=== PATIENT | female | born 1975 | race Caucasian/White ===

== ENCOUNTER 2017-12-08 16:35 | Emergency (ER) | payer MEDICAID, SELFPAY ==
[2017-12-08 16:40] VITALS: BP 128/67; PULSE 97; RESP 16; TEMP 36.7; O2SAT 100
--- NOTE | 2017-12-08 16:51 | W.ED.GENAD ---
Discharge Plan Disposition Patient Disposition: [facility] Condition: Stable Discharge Details Chief Complaint: PsychEval Clinical Impression: At risk for suicide Primary Care Provider: Ana Daugherty ED Provider: Carolyn De La Cruz Home Meds and New Rx's Prescriptions: No Action No Known Home Meds RF: 0 Discharge Data Discharge Date/Time-TO BE ENTERED AT DEPARTURE: 12/09/17 09:13 Medical Decision Making <EDI Mata - Last Filed: 12/09/17 00:01> Patient is a 42-year-old female, well-known to myself, with chief complaint of suicidal ideation. She reports that she has had a number of financial stressors recently and has had increased thoughts of self-harm. States that she plans to kill herself with a drug overdose. Denies any hallucinations, thoughts of harming others. She denies any recent suicide attempts, has not taken any extra pills. Did recently stop her antidepressant. States that she was placed on antidepressant was have difficulty with hypotension while this medication. Reports that she is been seen by her primary care who has changed the medication but reports she has not been able to pick this up as of yet. Reports that she has tried to kill herself historically by cutting. No recent attempts. States that she is unable to keep herself safe at home. Has been hospitalized for mental health issues historically, was hospitalized last in August of 2017. Currently endorsing GARCIA as well which she assocaites with stress. Requesting Tylenol for discomfort. Was seen by [facility] prior to arrival, reports that they advised she be seen here for evaluation. They recommend hospitalizatin for suicidal ideation. Patient agrees with this plan. She reports they are currently working on finding a bed for her. Plan to obtain screening labs and contact [facility]. Spoke with Barbara with [facility] who is coming to assess the patient, she reports they have contacted local facilities in an effort to find placement for tonight. Barbara came and evaluated the patient. Agrees with the need for admission for suicidal ideation. Patient is a voluntary accident. Patient has remained one-to-one. Received Tylenol for her headache. Drinking water currently. Safety plan was established with the patient. Patient unable to be placed tonight. However, there is beds at [facility] available for tomorrow. Plan to keep patient here overnight do not currently have any in hospital beds awaiting her transfer tomorrow. Patient continues to be agreeable with this plan. Reports that her headache is coming back milligrams ibuprofen as declined any food. Is hydrating orally and appears to be resting. <Carolyn De La Cruz MD - Last Filed: 12/14/17 11:40> Patient was signed out to me by Dr. Hein awaiting transfer [facility] pending bed assignment. Bed now available, Dr. Barth accepting physician. Patient calm and cooperative, no complaints. Patient left ED with metal coater operator for transfer to [facility] by [facility] without incident. HPI <EDI Mata - Last Filed: 12/09/17 00:01> General Mode of arrival: ambulatory. Date/Time Provider Initiated Documentation: 12/08/17 16:45. Limitations to Documentation: no limitations. Information obtained by: patient. History of Present Illness 42 year old F presents to the emergency department with the chief complaint of suicidal ideation, described as severe, Patient started experiencing this day(s) Patient did receive the following treatments prior to arrival, other Related Data Home Medications Medication Instructions Recorded Confirmed Unknown [No Known Home Meds] 09/09/17 12/08/17 Allergies Allergy/AdvReac Type Severity Reaction Status Date / Time No Known Allergies Allergy Unverified 12/08/17 16:43 General Stated Complaint: PsychEval BERHANE: 2 Review of Systems <EDI Mata - Last Filed: 12/09/17 00:01> Constitutional Denies chills, Reports difficulty sleeping, Reports fatigue, Denies fever(s), Reports headache(s) (states she has had nagging GARCIA today, no abrupt onset. STates feels like typical GARCIA, uses Tylenol typically for her GARICA) and Reports poor appetite Eyes Denies change in vision ENT Denies vertigo, Denies dizziness and Reports headache(s) (states she has had nagging GACRIA today, no abrupt onset. STates feels like typical GARCIA, uses Tylenol typically for her GARCIA) Cardiovascular Denies chest pain, Denies chest pain at rest, Denies dyspnea and Denies dyspnea on exertion Respiratory Denies cough, Denies dyspnea and Denies dyspnea on exertion Gastrointestinal Denies abdominal pain, Denies nausea and Denies vomiting Genitourinary Denies dysuria, Denies flank pain and Denies urinary urgency Integumentary/Breasts Denies rash Neurologic Denies confusion, Denies vertigo, Denies dizziness and Reports headache(s) (states she has had nagging GARCIA today, no abrupt onset. STates feels like typical GARCIA, uses Tylenol typically for her GARCIA) Psychiatric Reports as per HPI, Reports anxiety, Reports change in appetite, Denies confusion, Reports depression, Denies auditory hallucinations, Denies hallucinations, Denies homicidal ideation and Reports suicidal ideation Endocrine Reports fatigue Exam <EDI Mata - Last Filed: 12/09/17 00:01> Const General: cooperative, comfortable, no acute distress and frail appearing Nutritional Appearance: thin Orientation: alert and awake HENMT Mouth: moist mucous membranes abnormal (patient appears dehydrated) Eyes General: appearance normal, both eyes and all related structures Resp Effort & Inspection: normal respiratory effort, able to speak in complete sentences and no respiratory distress Auscultation: clear to auscultation bilaterally Cardio Rate: regular rate Rhythm: regular rhythm Heart Sounds: S1 normal and S2 normal Skin General skin exam: no rashes or lesions noted Lesions: no lesions Rashes: no rashes Neuro General: alert, awake and oriented x3 Cognition: normal cognition Speech: speech normal Gait: normal gait (patient ambulates with limp at baseline assocaited with her CP, uses one walking crutch) Psych Appearance: grossly normal and disheveled Mental Status: mental status grossly normal Speech and Movement: speech and movement normal Mood: congruent mood Affect: sad Attitude: cooperative Thought Process: normal Thought Content: suicidality Insight: fair Judgment: poor Course <EDI Mata - Last Filed: 12/09/17 00:01> Vital Signs Temperature 36.7 C 12/08/17 16:40 Pulse 97 H 12/08/17 16:40 Respiratory Rate 16 12/08/17 16:40 Blood Pressure 128/67 12/08/17 16:40 Pulse Oximetry 100 12/08/17 16:40 Temperature 36.7 C 12/08/17 16:40 Temperature Source Skin 12/08/17 16:40 Pulse 97 H 12/08/17 16:40 Respiratory Rate 16 12/08/17 16:40 Respiratory Effort Non-Labored 12/08/17 16:40 Blood Pressure 128/67 12/08/17 16:40 Blood Pressure Position Sitting 12/08/17 16:40 Pulse Oximetry 100 12/08/17 16:40 Oxygen Delivery Method Room Air 12/08/17 16:40 Oxygen Flow Rate 0 12/08/17 16:40 Pain Level 8 12/08/17 16:40 Sign Out <EDI Mata - Last Filed: 12/09/17 00:01> Sign Out Data: Sign Out Comment: Care transferred to Dr. Hein. Plan for patient to be transferred to [facility] tomorrow morning for suicidal ideation. Last updated by Teresita Garber PA at 12/08/17 23:59 Post-Handoff Eval: Patient has been without issues overnight. [facility] has accepted patient but waiting for bed. Remains with [facility]. Will sign over to oncoming day physician, Dr. Carolyn De La Cruz. Sign Out Comment: Pending call from [facility] [place] [facility] for bed. Care transferred to Dr. De La Cruz. Last updated by Pollo Hein MD at 12/09/17 07:48
--- NOTE | 2017-12-08 17:10 | ED.GENADUL_ITS ---
Discharge Plan Disposition Patient Disposition: [facility] Condition: Stable Discharge Details Chief Complaint: PsychEval Clinical Impression: At risk for suicide Primary Care Provider: Ana Daugherty ED Provider: Carolny De La Cruz Home Meds and New Rx's Prescriptions: No Action No Known Home Meds RF: 0 Discharge Data Discharge Date/Time-TO BE ENTERED AT DEPARTURE: 12/09/17 09:13 Medical Decision Making <EDI Mata - Last Filed: 12/09/17 00:01> Patient is a 42-year-old female, well-known to myself, with chief complaint of suicidal ideation. She reports that she has had a number of financial stressors recently and has had increased thoughts of self-harm. States that she plans to kill herself with a drug overdose. Denies any hallucinations, thoughts of harming others. She denies any recent suicide attempts, has not taken any extra pills. Did recently stop her antidepressant. States that she was placed on antidepressant was have difficulty with hypotension while this medication. Reports that she is been seen by her primary care who has changed the medication but reports she has not been able to pick this up as of yet. Reports that she has tried to kill herself historically by cutting. No recent attempts. States that she is unable to keep herself safe at home. Has been hospitalized for mental health issues historically, was hospitalized last in August of 2017. Currently endorsing GARCIA as well which she assocaites with stress. Requesting Tylenol for discomfort. Was seen by [facility] ENCARNACION prior to arrival, reports that they advised she be seen here for evaluation. They recommend hospitalizatin for suicidal ideation. Patient agrees with this plan. She reports they are currently working on finding a bed for her. Plan to obtain screening labs and contact [facility]. Spoke with Barbara with [facility] who is coming to assess the patient, she reports they have contacted local facilities in an effort to find placement for tonight. Barbara came and evaluated the patient. Agrees with the need for admission for suicidal ideation. Patient is a voluntary accident. Patient has remained one-to-one. Received Tylenol for her headache. Drinking water currently. Safety plan was established with the patient. Patient unable to be placed tonight. However, there is beds at [place] available for tomorrow. Plan to keep patient here overnight do not currently have any in hospital beds awaiting her transfer tomorrow. Patient continues to be agreeable with this plan. Reports that her headache is coming back milligrams ibuprofen as declined any food. Is hydrating orally and appears to be resting. <Carolyn De La Cruz MD - Last Filed: 12/14/17 11:40> Patient was signed out to me by Dr. Hein awaiting transfer [facility] pending bed assignment. Bed now available, Dr. Barth accepting physician. Patient calm and cooperative, no complaints. Patient left ED with tobacco primer machine operator for transfer to [facility] by [facility] without incident. HPI <EDI Mata - Last Filed: 12/09/17 00:01> General Mode of arrival: ambulatory . Date/Time Provider Initiated Documentation: 12/08/17 16:45 . Limitations to Documentation: no limitations . Information obtained by: patient . History of Present Illness 42 year old F presents to the emergency department with the chief complaint of suicidal ideation, described as severe, Patient started experiencing this day(s) Patient did receive the following treatments prior to arrival, other Related Data Home Medications Medication Instructions Recorded Confirmed Unknown [No Known Home Meds] 09/09/17 12/08/17 Allergies Allergy/AdvReac Type Severity Reaction Status Date / Time No Known Allergies Allergy Unverified 12/08/17 16:43 General Stated Complaint: PsychEval BERHANE: 2 Review of Systems <EDI Mata - Last Filed: 12/09/17 00:01> Constitutional Denies chills, Reports difficulty sleeping, Reports fatigue, Denies fever(s), Reports headache(s) (states she has had nagging GARCIA today, no abrupt onset. STates feels like typical GARCIA, uses Tylenol typically for her GARCIA) and Reports poor appetite Eyes Denies change in vision ENT Denies vertigo, Denies dizziness and Reports headache(s) (states she has had nagging GARCIA today, no abrupt onset. STates feels like typical GARCIA, uses Tylenol typically for her GARCIA) Cardiovascular Denies chest pain, Denies chest pain at rest, Denies dyspnea and Denies dyspnea on exertion Respiratory Denies cough, Denies dyspnea and Denies dyspnea on exertion Gastrointestinal Denies abdominal pain, Denies nausea and Denies vomiting Genitourinary Denies dysuria, Denies flank pain and Denies urinary urgency Integumentary/Breasts Denies rash Neurologic Denies confusion, Denies vertigo, Denies dizziness and Reports headache(s) ( states she has had nagging GARCIA today, no abrupt onset. STates feels like typical GARCIA, uses Tylenol typically for her GARCIA) Psychiatric Reports as per HPI, Reports anxiety, Reports change in appetite, Denies confusion, Reports depression, Denies auditory hallucinations, Denies hallucinations, Denies homicidal ideation and Reports suicidal ideation Endocrine Reports fatigue Exam <EDI Mata - Last Filed: 12/09/17 00:01> Const General: cooperative, comfortable, no acute distress and frail appearing Nutritional Appearance: thin Orientation: alert and awake HENMT Mouth: moist mucous membranes abnormal (patient appears dehydrated) Eyes General: appearance normal, both eyes and all related structures Resp Effort & Inspection: normal respiratory effort, able to speak in complete sentences and no respiratory distress Auscultation: clear to auscultation bilaterally Cardio Rate: regular rate Rhythm: regular rhythm Heart Sounds: S1 normal and S2 normal Skin General skin exam: no rashes or lesions noted Lesions: no lesions Rashes: no rashes Neuro General: alert, awake and oriented x3 Cognition: normal cognition Speech: speech normal Gait: normal gait (patient ambulates with limp at baseline assocaited with her CP, uses one walking crutch) Psych Appearance: grossly normal and disheveled Mental Status: mental status grossly normal Speech and Movement: speech and movement normal Mood: congruent mood Affect: sad Attitude: cooperative Thought Process: normal Thought Content: suicidality Insight: fair Judgment: poor Course <EDI Mata - Last Filed: 12/09/17 00:01> Vital Signs Temperature 36.7 C 12/08/17 16:40 Pulse 97 H 12/08/17 16:40 Respiratory Rate 16 12/08/17 16:40 Blood Pressure 128/67 12/08/17 16:40 Pulse Oximetry 100 12/08/17 16:40 Temperature 36.7 C 12/08/17 16:40 Temperature Source Skin 12/08/17 16:40 Pulse 97 H 12/08/17 16:40 Respiratory Rate 16 12/08/17 16:40 Respiratory Effort Non-Labored 12/08/17 16:40 Blood Pressure 128/67 12/08/17 16:40 Blood Pressure Position Sitting 12/08/17 16:40 Pulse Oximetry 100 12/08/17 16:40 Oxygen Delivery Method Room Air 12/08/17 16:40 Oxygen Flow Rate 0 12/08/17 16:40 Pain Level 8 12/08/17 16:40 Sign Out <EDI Mata - Last Filed: 12/09/17 00:01> Sign Out Data: Sign Out Comment: Care transferred to Dr. Hein. Plan for patient to be transferred to [place] tomorrow morning for suicidal ideation. Last updated by Teresita Garber PA at 12/08/17 23:59 Post-Handoff Eval: Patient has been without issues overnight. [facility] has accepted patient but waiting for bed. Remains with [facility]. Will sign over to oncoming day physician, Dr. Carolyn De La Cruz. Sign Out Comment: Pending call from [facility] [place] for bed. Care transferred to Dr. De La Cruz. Last updated by Pollo Hein MD at 12/09/17 07:48
[2017-12-08 17:25] LABS: Bilirubin Negative (Negative); Blood Negative (Negative); Clarity Clear; Glucose Negative (Negative); Ketones Trace mg/dL (Negative); Leukocyte Esterase Small (Negative); Nitrite Negative (Negative); pH 7.5 (5-8)
[2017-12-08 17:32] LABS: C & S Indicated? No/Sq. Contamination; Casts Negative LPF (Negative); Crystals Many Amorphous HPF (Negative); Epithelial Cells Many HPF (Negative); Mucus Moderate (Negative); WBC 20-50 HPF (0-5)
[2017-12-08 18:17] LABS: *AMPHETAMINES SCREEN URINE Negative (Negative); *BARBITURATES SCREEN URINE Negative (Negative); *BENZODIAZEPINES SCREEN URINE Negative (Negative); Cannabinoids THC Negative (Negative); Cocaine Screen,Urine Negative (Negative); METHADONE URINE SCREEN Negative (Negative); OPIATES URINE SCREEN Negative (Negative)
[2017-12-08 18:21] LABS: Abs Immature Grans 0.01 k/cumm (0.0-0.09); Absolute Basophil Count 0.03 k/cumm (0.0-0.2); Absolute Eosinophil Count 0.14 k/cumm (0.0-0.7); Absolute Lymphocyte Count 1.11 k/cumm (1.2-3.4); Absolute Monocyte Count 0.53 k/cumm (0.11-0.7); Absolute Neutrophil Count 5.41 k/cumm (1.2-6.7); Basophils % 0.4; Eosinophils % 1.9; HCT 35.8 % (36.0-46.0); HGB 11.9 g/dL (12.0-15.5); Immature Grans % 0.1; Lymphocytes % 15.4; Mean Corp. HGB Concentration 33.2 g/dL (32.0-36.0); Mean Corpuscular Hemoglobin 29.9 pg (27.0-33.0); Mean Corpuscular Volume 89.9 fL (80-95); Mean Platelet Volume 9.9 fL (8.0-11.0); Monocytes % 7.3; Neutrophils % 74.9; Platelet Count 237 x1000/uL (130-400); RBC 3.98 m/cumm (4.00-5.20); RBC Distribution Width 13.2 % (11.7-14.6); White Blood Cell Count 7.23 k/cumm (4.4-10.8)
[2017-12-08 18:31] LABS: Tricyclic Antidepressants Negative (Negative)
[2017-12-08 18:45] LABS: ALT 13 U/L (12-78); AST 14 U/L (15-37); Albumin 3.9 g/dL (3.4-5.0); Alkaline Phosphatase 67 U/L (46-116); Anion Gap 8.6 mmol/L (3-11); BUN 6 mg/dL (7-18); Bilirubin, Total 0.9 mg/dL (0.2-1.0); CO2 28.4 mmol/L (21.0-32.0); CREATININE 0.58 mg/dL (0.55-1.02); Chloride 104 mmol/L (98-107); Glucose 90 mg/dL (70-100); Sodium 141 mmol/L (136-145); TSH 0.81 uIU/mL (0.358-3.74); Total Protein 7.8 g/dL (6.4-8.2)
[2017-12-08 18:48] LABS: ETHANOL BLOOD < 3.0 mg/dL (<3)
[2017-12-08 18:53] LABS: Calcium 8.7 mg/dL (8.5-10.1)
[2017-12-08] MEDS: Acetaminophen 325 MG TAB 650 MG PO (18:53)
[2017-12-08 19:09] LABS: Salicylate < 2.8 mg/dL (2.8-20.0)
[2017-12-08 19:14] LABS: Acetaminophen < 2 ug/mL (10-30)
--- NOTE | 2017-12-08 19:28 | PDOC.ERCMPRO ---
Care Management Progress Note CM paged at [phone] from ED by Cathleen for patient presenting with SI, reported call made for [facility] screening. CM arrived; patient not yet medically cleared, Barbara vazquez [facility] present. Interim safety plan as [facility] ordered. Barbara vazquez [facility] reports bed availability-awaiting lab results in order to fax to facilities for review. CM responded to ED to assess patient, patient has not yet been medically cleared, was assessed by screener. Barbara deemed patient meets criteria for psychiatric stabilization. Provider, Teresita reports patient struggling with SI central to financial stressors resulting in increased thoughts of self harm with plan of drug overdose. History of psychiatric stabilization-most recent August of 2017. Reportedly, PCP initiated medication changes, patient unable to retrieve medication as of yet. Per RN report, patient calm and relaxed-appropriate in interaction. In the interim; please note safety plan below to guide patient care while awaiting further assessment in the ED. INTERIM SAFETY PLAN: 1. Will remain on suicide precautions and in paper clothes. 2. Will remain in room under direct supervision of one-on-one staff at all times provided by RAFFY, NURSING ASSOCIATE primary health organisation manager. 3. May have paper cups, plates, finger foods. 4. Follow [facility] Management of the Admitted Behavioral Health Patient policy. 5. Comfort bath system only. 6. No personal belongings 7. No visitors. Once medically cleared, and if patient admitted to [facility] to await placement, CM will facilitate interdepartmental huddle with [facility] screener for safety planning considerations and meet with patient to review [facility] policy and safety plan, establish individual wishes for treatment and maintain patient rights. Safety plan will be established with patient, and care team, to adhere to patient goals, identify restrictions based on behavioral status, address nutrition, and determine allowed personal belongings, tools for hygiene and personal care. As well plan will determine level of activity including ambulation, level of supervision, visitors, and determine privileges based on level of acuity, behaviors and level of engagement by patient.
--- NOTE | 2017-12-08 19:38 | CMPROGNOTE_ITS ---
Care Management Progress Note CM paged at [phone] from ED by Cathleen for patient presenting with SI, reported call made for [facility] screening. CM arrived; patient not yet medically cleared, Barbara vazquez [facility] present. Interim safety plan as [facility] ordered. Barbara vazquez [facility] reports bed availability-awaiting lab results in order to fax to facilities for review. CM responded to ED to assess patient, patient has not yet been medically cleared , was assessed by screener. Barbara deemed patient meets criteria for psychiatric stabilization. Provider, Teresita reports patient struggling with SI central to financial stressors resulting in increased thoughts of self harm with plan of drug overdose. History of psychiatric stabilization-most recent August of 2017. Reportedly, PCP initiated medication changes, patient unable to retrieve medication as of yet. Per RN report, patient calm and relaxed-appropriate in interaction. In the interim; please note safety plan below to guide patient care while awaiting further assessment in the ED. INTERIM SAFETY PLAN: 1. Will remain on suicide precautions and in paper clothes. 2. Will remain in room under direct supervision of one-on-one staff at all times provided by RAFFY, BANKRUPTCY MANAGER licensing worker. 3. May have paper cups, plates, finger foods. 4. Follow [facility] Management of the Admitted Behavioral Health Patient policy. 5. Comfort bath system only. 6. No personal belongings 7. No visitors. Once medically cleared, and if patient admitted to [facility] to await placement, CM will facilitate interdepartmental huddle with [facility] screener for safety planning considerations and meet with patient to review [facility] policy and safety plan, establish individual wishes for treatment and maintain patient rights. Safety plan will be established with patient, and care team, to adhere to patient goals , identify restrictions based on behavioral status, address nutrition, and determine allowed personal belongings, tools for hygiene and personal care. As well plan will determine level of activity including ambulation, level of supervision, visitors, and determine privileges based on level of acuity, behaviors and level of engagement by patient.
--- NOTE | 2017-12-08 20:08 | PDOC.MHCN ---
Mental Health Crisis Note Presenting Issue How did you arrive at the ED and why did you come: A corrections caseworker from [facility] brings patient to the ER after she comes to see her therapist at [facility] and reveals that she is suicidal with a plan of taking an overdose. Precipitating Factors Patient reports feeling overwhelmed over financial issues. She has a long history of depression and anxiety and she states that her depression has worsened significantly over the past few months to the point where she is now suicidal. She is unable to enter into a safety plan and says she cannot remain safe if she returns home. She denies homicidal thoughts. Disposition BEHAVIOR: Cooperative. EYE CONTACT: Good. MOOD: Depressed. AFFECT: Congruent to mood. APPETITE: Poor. SLEEP(trouble falling/staying asleep: Reports difficulty sleeping at night. Plan Plan is to seek a voluntary hospitalization for mood stabilization. Referrals are faxed to [facility] and [facility] for review. We await their decisions.
--- NOTE | 2017-12-08 20:27 | PDOC.MHCN_ITS ---
Mental Health Crisis Note Presenting Issue How did you arrive at the ED and why did you come: A mental health case manager from [facility] brings patient to the ER after she comes to see her therapist at [facility] and reveals that she is suicidal with a plan of taking an overdose. Precipitating Factors Patient reports feeling overwhelmed over financial issues. She has a long history of depression and anxiety and she states that her depression has worsened significantly over the past few months to the point where she is now suicidal. She is unable to enter into a safety plan and says she cannot remain safe if she returns home. She denies homicidal thoughts. Disposition BEHAVIOR: Cooperative. EYE CONTACT: Good. MOOD: Depressed. AFFECT: Congruent to mood. APPETITE: Poor. SLEEP(trouble falling/staying asleep: Reports difficulty sleeping at night. Plan Plan is to seek a voluntary hospitalization for mood stabilization. [facility] to [facility] and [facility] for review. We await their decisions.
[2017-12-08] MEDS: Ibuprofen 600 MG TAB PO (21:38)
--- NOTE | 2017-12-09 07:10 | NUR.NOTE ---
patient appears to be resting comfortably. One on one observers are switching out at this time.Nursing Note:
--- NOTE | 2017-12-09 08:10 | NUR.NOTE ---
patient appears to be resting at this time. one on one observer present.Nursing Note:
--- NOTE | 2017-12-09 09:10 | PDOC.ERCMPRO ---
Care Management Progress Note 12/08-Dr. Barth from [facility] has discussed patient with Dr. Odette De La Cruz. Patient has been accepted at [facility] this morning. Notified Sheriff Hemant, who is setting up transportation. JUAN FRANCISCO Ortez has completed the nurse to nurse report. Discussed transfer to [facility] with Daphne and she is in agreement. Patient is a voluntary admission to [facility]. Dr. Odette De La Cruz has completed transfer paperwork. Jovita, Nursing Analysis Evaluator, is aware.
--- NOTE | 2017-12-09 09:13 | CMPROGNOTE_ITS ---
Care Management Progress Note 12/08-Dr. Barth from [facility] has discussed patient with Dr. Odette De La Cruz. Patient has been accepted at [facility] [facility] this morning. Notified Sheriff Hemant, who is setting up transportation. JUAN FRANCISCO Ortez has completed the nurse to nurse report. Discussed transfer to [facility] with Daphne and she is in agreement. Patient is a voluntary admission to [facility]. Dr. Odette De La Cruz has completed transfer paperwork. Jovita, Nursing Third Loader, is aware.
== END 2017-12-09 09:13 | disposition short-term general hospital (02) ==
PROVIDERS: Physician Assistant; Emergency Provider Student in an Organized Health Care Education/Training Program; PCP Nurse Practitioner
DX: F41.8 Other specified anxiety disorders (principal); R45.851 Suicidal ideations; Z75.1 Person awaiting admission to adequate facility elsewhere
CPT/HCPCS: 36415; 80053; 80307; 99285; 80320; 80329; 81003; 81015; 84443; 85025; 99284

== ENCOUNTER 2018-01-26 13:25 | Outpatient (REF) | payer MEDICAID, SELFPAY ==
[2018-01-26 14:12] LABS: HDL Cholesterol 59 mg/dL (40-60); LDL CHOLESTEROL 153 mg/dL (<100)
== END 2018-01-26 13:45 ==
LOC: NCHCN 13:25
PROVIDERS: PCP Nurse Practitioner; Visit Provider Nurse Practitioner Family
DX: R07.9 Chest pain, unspecified (principal); R45.851 Suicidal ideations; N91.2 Amenorrhea, unspecified
CPT/HCPCS: 83721; 83718

== ENCOUNTER 2018-12-22 01:10 | Outpatient (CLI) | payer MEDICAID, SELFPAY ==
--- NOTE | 2018-12-22 13:52 | DI.MAMMO_ITS ---
EXAM: MG MAMMO DIAGNOSTIC BI CLINICAL HISTORY: RT BREAST PAIN N64.4 COMPARISON: No exams were available for comparison TECHNIQUE: Full Field digital Mammography views with Computer Aided Diagnosis followed by Breast To mosynthesis. FINDINGS: Masses/Architectural Distortion: None seen. Microcalcifications: No suspicious pleomorphic-type are seen. Skin Thickening/Nipple Retraction: None. Impression: 1. No significant interval change with no specific features of malignancy noted. 2. Unless there is more urgent need, yearly screening mammography is recommended. BI-RADS Cat 1 - Negative Breast Density - Category C - Heterogeneously dense A negative radiographic report should not delay biopsy if a dominant or clinically suspicious mass is present. Up to ten percent of cancers are not identified on mammography. A negative report may reinforce clinical impression. Adenosis and dense breasts may obscure an underlying neoplasm. False positive reports average 6 to 10%.
== END 2018-12-22 01:30 ==
PROVIDERS: PCP Nurse Practitioner Family; Visit Provider Nurse Practitioner Family
DX: N64.4 Mastodynia (principal)
CPT/HCPCS: 77062; 77066; G0279

== ENCOUNTER 2019-01-07 16:29 | Outpatient (REF) | payer MEDICAID, SELFPAY ==
--- NOTE | 2019-01-07 16:30 | PAPFT_PTH ---
PATIENT: Daphne Machado LOC: [facility] U#:[id number] AGE/SX: 43/F ROOM: RE01/07/[address]: Alpa Leal : 1975 BED: DIS: 01/07/2019 SPEC #: [id number] RECD: 01/10/19 12:13 STATUS: DANUTA REQ #: [id number] NANCY: 01/07/19 16:[address]: Alpa Leal DEPT: [facility] Cytology RECD BY: Sarita Burrows Tissues: 1 - CX/ENDOCX FOR PAP SMEARS Procedures: PAP THIN PREP/UVM Screening HPV DNA PROBE Comments: [id number]
== END 2019-01-07 16:49 ==
LOC: NCHCN 16:29
PROVIDERS: PCP Nurse Practitioner Family; Visit Provider Nurse Practitioner Family
DX: Z12.4 Encounter for screening for malignant neoplasm of cervix (principal); Z11.51 Encounter for screening for human papillomavirus (HPV); Z00.00 Encounter for general adult medical examination without abnormal findings
CPT/HCPCS: 88142; 87624

== ENCOUNTER 2019-10-11 11:24 | Outpatient (REF) | payer MEDICAID, SELFPAY ==
[2019-10-11 19:38] LABS: Abs Immature Grans 0.01 10^3/uL (0.0-0.06); Absolute Basophil Count 0.04 10^3/uL (0.0-0.2); Absolute Eosinophil Count 0.09 10^3/uL (0.0-0.7); Absolute Lymphocyte Count 1.02 10^3/uL (1.2-3.4); Absolute Neutrophil Count 4.11 10^3/uL (1.2-6.7); Basophils % 0.7; Eosinophils % 1.6; HCT 32.7 % (36.0-46.0); HGB 10.6 g/dL (11.2-15.7); Immature Grans % 0.2; Lymphocytes % 17.7; MCH 28.6 pg (27.0-33.0); MCHC 32.4 % (32.0-36.0); MCV 88.4 fL (80-95); MPV 10.9 fL (8.0-11.0); Monocytes % 8.7; Neutrophils % 71.1; Nucleated RBC 0 %; Platelet Count 238 10^3/uL (130-400); RDW 13.7 % (11.7-14.6); RDW-SD 44.4 fL; WBC 5.77 10^3/uL (4.4-10.8)
[2019-10-11 20:09] LABS: Bilirubin Negative (Negative); Blood Trace-intact (Negative); Clarity Clear (Clear); Glucose Negative (Negative); Ketones Negative (Negative); Leukocyte Esterase Negative (Negative); Nitrite Negative (Negative); Specific Gravity >= 1.030 (1.005-1.025); Urobilinogen 0.2 EU/dL (Up TO 0.2)
[2019-10-11 20:10] LABS: C & S Indicated? C&S Done As Ordered
[2019-10-11 20:19] LABS: ALT 10 U/L (14-59); AST 11 U/L (15-37); Albumin 3.8 g/dL (3.4-5.0); Alkaline Phosphatase 52 U/L (46-116); Anion Gap 10.6 mmol/L (3-11); BUN 7 mg/dL (7-18); Bilirubin, Total 0.7 mg/dL (0.2-1.0); CO2 24.4 mmol/L (21.0-32.0); CREATININE 0.51 mg/dL (0.55-1.02); Calcium 8.9 mg/dL (8.5-10.1); Chloride 104 mmol/L (98-107); Glucose 81 mg/dL (74-106); Potassium 3.7 mmol/L (3.5-5.1); Sodium 139 mmol/L (136-145); TSH (W/Ref FT4) 1.06 uIU/mL (0.36-3.74); Total Protein 7.1 g/dL (6.4-8.2); Vitamin B12 247 pg/mL (193-986)
[2019-10-11 20:25] LABS: Bacteria Few HPF (Negative); Casts Negative LPF (Negative); Crystals Few Amorphous HPF (Negative); Epithelial Cells Moderate HPF (Negative); Mucus Trace (Negative); RBC Negative HPF (0-2); WBC 0-2 HPF (0-5)
[2019-10-13 04:48] LABS: Vitamin D 25 Total 5.5 ng/ml (30-100)
== END 2019-10-11 11:44 ==
LOC: NCHCN 11:24
PROVIDERS: PCP Nurse Practitioner Family; Visit Provider Nurse Practitioner Psychiatric/Mental Health
DX: T73.0XXS Starvation, sequela (principal); R30.0 Dysuria
CPT/HCPCS: 80053; 82306; 81003; 81015; 82607; 84443; 85025; 87086

== ENCOUNTER 2020-11-12 19:25 | Outpatient (REF) | payer MEDICAID, SELFPAY | END 2020-11-12 19:26 | disposition home or self-care (01) | LOC: NCHCN 19:25 | PROVIDERS: PCP Nurse Practitioner Family; Visit Provider Nurse Practitioner Family | DX: R30.0 Dysuria (principal) | CPT/HCPCS: 87086 ==

== ENCOUNTER 2021-12-13 15:57 | Outpatient (REF) | payer MEDICAID, SELFPAY ==
[2021-12-13 18:46] LABS: HCT 28.9 % (36.0-46.0); HGB 9.4 g/dL (11.2-15.7); MCH 26.3 pg (27.0-33.0); MCHC 32.5 % (32.0-36.0); MCV 81 fL (80-95); MPV 9.9 fL (8.0-11.0); Platelet Count 314 10^3/uL (130-400); RBC 3.57 10^6/uL (3.93-5.22); RDW 16.7 % (11.7-14.6); RDW-SD 49.4 fL; WBC 6.85 10^3/uL (4.4-10.8)
[2021-12-13 18:56] LABS: Total Iron Binding Capacity 503 ug/dL (250-450)
[2021-12-13 19:23] LABS: Anion Gap 8.9 mmol/L (3-11); BUN 8 mg/dL (7-18); CO2 27.1 mmol/L (21.0-32.0); CREATININE 0.6 mg/dL (0.55-1.02); Calcium 8.9 mg/dL (8.5-10.1); Chloride 103 mmol/L (98-107); Estimated GFR 111.34 (mL/min/1.73m2); Ferritin 8 ng/mL (8-252); Glucose 125 mg/dL (74-106); Magnesium 1.6 mg/dL (1.8-2.4); Potassium 3.7 mmol/L (3.5-5.1); Sodium 139 mmol/L (136-145); Vitamin B12 300 pg/mL (193-986)
[2021-12-13 20:30] LABS: Iron 84 ug/dL (50-170)
[2021-12-16 05:39] LABS: Vitamin D 25 Total 15.7 ng/mL (30-100)
[2021-12-16 12:11] LABS: FSH 11.6 mIU/mL (See Note); LH 3.2 mIU/mL (See Note)
== END 2021-12-13 15:58 | disposition home or self-care (01) ==
LOC: NCHCN 15:57
PROVIDERS: PCP Nurse Practitioner Family; Visit Provider Nurse Practitioner Family
DX: E55.9 Vitamin D deficiency, unspecified (principal); E61.1 Iron deficiency; R30.0 Dysuria; N89.8 Other specified noninflammatory disorders of vagina; R53.83 Other fatigue; F33.2 Major depressive disorder, recurrent severe without psychotic features
CPT/HCPCS: 80048; 82306; 85027; 82607; 82728; 83001; 83002; 83540; 83550; 83735; 84443

== ENCOUNTER 2022-09-25 18:21 | Outpatient (REF) | payer MEDICAID, SELFPAY ==
[2022-09-25 15:53] LABS: Bilirubin Negative (Negative); Blood Negative (Negative); Clarity Clear (Clear); Glucose Negative (Negative); Ketones Negative (Negative); Leukocyte Esterase Negative (Negative); Nitrite Negative (Negative); Specific Gravity >= 1.030 (1.005-1.025); Urobilinogen 0.2 mg/dL (Up to 0.2); pH 6.5 (5-8)
[2022-09-25 16:05] LABS: Abs Immature Grans 0.02 10^3/uL (0.0-0.06); Absolute Basophil Count 0.06 10^3/uL (0.0-0.2); Absolute Eosinophil Count 0.08 10^3/uL (0.0-0.7); Absolute Lymphocyte Count 1.06 10^3/uL (1.2-3.4); Absolute Monocyte Count 0.59 10^3/uL (0.1-0.8); Absolute Neutrophil Count 3.68 10^3/uL (1.2-6.7); Basophils % 1.1; Eosinophils % 1.5; HCT 30.3 % (36.0-46.0); HGB 9.3 g/dL (11.2-15.7); Immature Grans % 0.4; Lymphocytes % 19.3; MCH 23.8 pg (27.0-33.0); MCHC 30.7 % (32.0-36.0); MCV 78 fL (80-95); MPV 10.1 fL (8.0-11.0); Monocytes % 10.7; Platelet Count 285 10^3/uL (130-400); RBC 3.91 10^6/uL (3.93-5.22); RDW 15.4 % (11.7-14.6); RDW-SD 43.3 fL; WBC 5.49 10^3/uL (4.4-10.8)
[2022-09-25 16:27] LABS: ALT 10 U/L (14-59); AST 14 U/L (15-37); Alkaline Phosphatase 62 U/L (46-116); Anion Gap 11.1 mmol/L (3-11); BUN 10 mg/dL (7-18); Bilirubin, Total 0.7 mg/dL (0.2-1.0); CO2 23.9 mmol/L (21.0-32.0); CREATININE 0.7 mg/dL (0.55-1.02); Calcium 8.9 mg/dL (8.5-10.1); Calculated LDL 141 mg/dL (<100); Chloride 104 mmol/L (98-107); Cholesterol 214 mg/dL (<200); Estimated GFR 106.62 (mL/min/1.73m2); Glucose 83 mg/dL (74-106); HDL Cholesterol 67 mg/dL (40-60); Magnesium 1.9 mg/dL (1.8-2.4); Sodium 139 mmol/L (136-145); Triglyceride 33 mg/dL (<150)
[2022-09-25 16:44] LABS: Iron 16 ug/dL (50-170); Total Iron Binding Capacity 523 ug/dL (250-450); Transferrin Sat 3 % (15-50)
[2022-09-25 16:47] LABS: Vitamin D 25 Total 18.7 ng/mL (30-100)
== END 2022-09-25 18:22 | disposition home or self-care (01) ==
LOC: NCHCN 18:21
PROVIDERS: PCP Nurse Practitioner Family; Visit Provider Nurse Practitioner Family
DX: E61.2 Magnesium deficiency (principal); D64.9 Anemia, unspecified; E78.5 Hyperlipidemia, unspecified; R53.83 Other fatigue; E55.9 Vitamin D deficiency, unspecified; R82.998 Other abnormal findings in urine
CPT/HCPCS: 80053; 80061; 82306; 81003; 83540; 83550; 83735; 85025

== ENCOUNTER 2023-03-10 11:55 | Day surgery (SDC) | payer MEDICAID, SELFPAY ==
--- NOTE | 2023-03-09 18:10 | W.ANESPRE ---
General Info Date of Service Date Performed: 03/10/23 Height: 4 ft 4 in Weight: 34.6 kg Body Mass Index (BMI): 19.8 Surgical Procedure: Operation Date: 03/10/23 13:35 Proposed Procedure Side Surgeon p Yanique Mahmood MD Meds Allergies and Home Medications Allergies Allergy/AdvReac Type Severity Reaction Status Date / Time No Known Allergies Allergy Unverified 03/10/23 12:29 Home Medication Medication Instructions Recorded ascorbic acid (vitamin C) 250 mg 250 mg PO DAILY 01/22/23 tablet cholecalciferol (vitamin D3) 125 125 mcg PO DAILY 01/22/23 mcg (5,000 unit) tablet ferrous gluconate 324 mg (37.5 mg 324 mg PO DAILY 01/22/23 iron) tablet bisacodyl 5 mg tablet,delayed 5 mg PO ONCE Colonoscopy Bowel 03/04/23 release (Dulcolax (bisacodyl)) Prep #4 tabs polyethylene glycol 3350 17 238 g PO ONCE Colonoscopy Bowel 03/04/23 gram/dose oral powder Prep #238 grams Current Visit Medications: Current Medications Generic Name Dose Route Start Last Admin Trade Name Freq PRN Reason Stop Dose Admin Ringer's Solution 1,000 mls @ 80 mls/hr 03/10/23 06:00 IV 03/10/23 23:59 INFUSION SARAH IV Miscellaneous Supplies 1 each 03/10/23 06:00 Iv Access IV 03/10/23 23:59 DIRECTED SARAH Sodium Chloride 0 ml 03/10/23 06:00 Normal Saline Flush 10 Ml Syr IV 03/10/23 23:59 PRN PRN Sodium Chloride 0 ml 03/10/23 06:00 Normal Saline 10 Ml Vial IJ 03/10/23 23:59 DIRECTED PRN Sterile Water 0 ml 03/10/23 06:00 Water,Injection,Sterile 10 Ml Vial IJ 03/10/23 23:59 DIRECTED PRN PFSH Active Problems Active Problems: Problem Status Onset Code Anorexia R63.0 Recurrent major depression-severe F33.2 Anxiety F41.9 Adjustment disorder with mixed emotional features F43.29 Hair loss L65.9 Low hemoglobin D64.9 Vitamin D deficiency E55.9 Wrist pain, right M25.531 Onychomycosis of toenail B35.1 Constipation K59.00 Muscle weakness M62.81 Fatigue R53.83 Perimenopausal N95.1 Premenstrual symptom N94.3 Weight loss R63.4 Magnesium deficiency E61.2 Hyperlipidemia E78.5 Dysuria R30.0 Iron deficiency anemia D50.9 Cerebral palsy G80.9 Medical History Medical History Hx of renal calculi Hx of suicide attempt H/O fall Surgical History Surgical History Hx of release of tendon Left hamstring 12/28/2006 History of colonoscopy EGD also 10/23/2008 History of carpal tunnel release right 12/28/2006 Fx distal ulna-open right 12/28/2006 Hx of cholecystectomy 07/28/2005 History of 12/28/2006 History of appendectomy 12/28/2006 Tobacco Smoking/Tobacco Use Status: Never Alcohol Alcohol Intake: current Alcohol intake frequency: holidays/special occasions only Substance Use Substance use: Never Substance use type: does not use Vital Signs and Lab Results Vital Signs Most Recent Vital Signs in EMR: Temp Pulse Resp BP Pulse Ox 35.6 C L 97 H 18 124/78 100 03/10/23 12:31 03/10/23 12:31 03/10/23 12:31 03/10/23 12:31 03/10/23 12:31 Lab Results Blood Type / Crossmatch: No Data to Display Complete Blood Count: No Data to Display Complete Metabolic Panel: No Data to Display Liver Function Panel: No Data to Display Coagulation Panel: No Data to Display Cardiac Panel: No Data to Display Arterial Blood Gas: No Data to Display Venous Blood Gas: No Data to Display Pancreas Panel: No Data to Display Thyroid Panel: No Data to Display Infectious Disease: No Data to Display Blood Cultures: No Data to Display Toxicology Panel: No Data to Display Panel: No Data to Display Anesthesia Assessment and Plan Anesthesia History Personal History: No History of Anesthesia Complications Family History: No Family History of Anesthesia Complications Exercise Tolerance Exercise Tolerance: Metabolic Equivalents>4 Pertinent Negatives Pertinent Negatives: No Symptoms of GERD Cardiac & Pulmonary Exam Cardiac Exam: Normal S1/S2 Heart Sounds Pulmonary Exam: Clear Bilateral Breath Sounds Implantable Cardiac Device Does patient have a Pacemaker or an ICD?: No Airway Exam Known Difficult Airway: No Mallampati Class: 1 Mouth Opening: Normal (> 3cm) Thyromental Distance: Greater than 3 cm Neck Range of Motion: Full ROM Neck Circumference: Normal Teeth Condition: Normal Dentition ASA Classification ASA Score: ASA 2 Emergency Case?: No NPO Status NPO Status: NPO Clears >2 hours, Solids >8 hours Status Status: Not Relevant due to Medical History Anesthesia Plan Resuscitation Status: Full Code Anesthesia Technique: General Anesthesia Airway Planned: Natural Airway Monitors Used: Standard Monitors Preoperative Comments:: 47 yo female for colo. Sig PMHx: cerebral palsy, anxiety, anorexia, depression, never smoker, occ EtOH
[2023-03-10 12:31] VITALS: BP 124/78; PULSE 97; RESP 18; TEMP 35.6; O2SAT 100
[2023-03-10] MEDS: Lactated Ringers 1,000 ML 80 ML IV (12:50)
[2023-03-10 13:22] VITALS: BMI 19.8
[2023-03-10 14:05] VITALS: BP 83/59; PULSE 79; RESP 16; TEMP 36.3; O2SAT 100
--- NOTE | 2023-03-10 14:07 | W.COLOREPORT ---
Date of service: 03/10/23 Time of Service: 14:07 Colonoscopy Report Procedure Description: PROCEDURES PERFORMED: 1. Colonoscopy PREOPERATIVE DIAGNOSIS: Screening colonoscopy POSTOPERATIVE DIAGNOSIS: Normal SURGEON: Kalani Mahmood MD INDICATION FOR PROCEDURE: the patient is a 47-year-old woman with no increased risk factors and no symptoms due for screening colonoscopy. FINDINGS: Normal colon, normal rectum. SURVEILLANCE interval/FOLLOW-UP: 10 years SPECIMENS: None EBL: Minimal COMPLICATIONS: None QUALITY of prep: Excellent Procedure in detail: The patient gave written consent and was in agreement with the indications, the potential risks as well as the benefits of the procedure. They were taken to the endoscopy suite and laid in the left lateral decubitus position. A timeout was performed and anesthesia was administered which was tolerated well. I started the procedure. Digital rectal and visual examination was performed and grossly within normal limits. A well-lubricated flexible colonoscope was then introduced and passed without any notable difficulty all the way to the cecum identified by the ileocecal valve and the appendiceal orifice. The scope was then slowly withdrawn with the above-noted findings. The patient tolerated the procedure well and was taken to the PACU in hemodynamically stable condition.
--- NOTE | 2023-03-10 14:08 | W.PM.DSUDISC ---
Date of service: 03/10/23 Time of Service: 14:08 Discharge Plan Disposition Patient Disposition: Home Condition: Good Discharge Details Attending Provider: David Mahmood Primary Care Provider: Alpa Leal Home Meds and New Rx's Prescriptions: No Action bisacodyl [Dulcolax (bisacodyl)] 5 mg tablet,delayed release (DR/EC) 5 mg PO ONCE Qty: 4 0RF Rx Instructions: Colonoscopy Bowel Prep- Per Instructions polyethylene glycol 3350 17 gram/dose powder 238 g PO ONCE Qty: 238 0RF Rx Instructions: Colonoscopy Bowel Prep- Per Instructions ferrous gluconate 324 mg (37.5 mg iron) tablet 324 mg PO DAILY ascorbic acid (vitamin C) 250 mg tablet 250 mg PO DAILY cholecalciferol (vitamin D3) 125 mcg (5,000 unit) tablet 125 mcg PO DAILY Discharge Instructions Additional Instructions: FINDINGS: No polyps were found. Your colon/rectum appear healthy and without any disease processes. Repeat a colonoscopy in 10 years. Stand Alone Forms: Colonoscopy Post Instructions Activity:: Activity as Tolerated Diet:: As Tolerated
[2023-03-10 14:40] VITALS: BP 98/62; PULSE 73; RESP 16; TEMP 36.3; O2SAT 100
--- NOTE | 2023-03-10 14:54 | W.ANESPOSTOP ---
Postoperative Evaluation Date, Time and Location Date Performed: 03/10/23 Time Performed: 14:40 Patient Location: PACU Vital Signs Most Recent Imported Vital Signs: Most Recent Vital Signs Temp Pulse Resp BP Pulse Ox 36.3 C L 73 16 98/62 L 100 03/10/23 14:40 03/10/23 14:40 03/10/23 14:40 03/10/23 14:40 03/10/23 14:40 Pain Score Most Recent Pain Score: Most Recent Pain Score Pain Level 0 03/10/23 14:40 Assessment Mental Status: Awake (Alert & Oriented to Patient Baseline) Airway and Respiratory Function: Patent airway with normal (patient baseline) respiratory exam Cardiovascular Function: Hemodynamically Stable Hydration Status: Adequately Hydrated Nausea & Vomiting: No Nausea or Vomiting Pain: Pt. Denies Any Pain Peripheral Nerve Block: Patient did not receive a nerve block
--- NOTE | 2023-03-10 16:24 | NUR.NOTE ---
Called [facility] with no answer. Left voice message with [facility] telephone number for call back to pick patient up and bring her home. Called [facility] and arranged patient tile picker from hospital and for her and her son to be dropped off at home. Gave [facility] insulation batting machine operator [facility] telephone number for mixer driver to call back when he is near for patient and son tile picker. Lupillo Marquez Nursing Note:
--- NOTE | 2023-03-10 16:52 | NUR.NOTE ---
[facility] calls [facility]SU back and reports that soonest available transit bus driver would not arrive until 17:45pm to pick patient up. Patient and Son informed of delayed [facility] chemical processing supervisor time planned. Lupillo Marquez RN Nursing Note:
--- NOTE | 2023-03-10 16:53 | NUR.NOTE ---
Patient Son reports he was able to contact a friend of his to drive patient and himself to home from the hospital. Reports friend will pick them up within half hour. Nursing Note:
--- NOTE | 2023-03-10 17:13 | NUR.NOTE ---
Patient and her son picked up by friend in personal vehicle. Patient left d/c from [facility] at 17:09pm on 03/10/23. [facility] transportation cancelled via phone call. Lupillo Marquez RN Nursing Note:
== END 2023-03-10 17:09 | disposition home or self-care (01) ==
PROVIDERS: PCP Nurse Practitioner Family; Visit Provider Student in an Organized Health Care Education/Training Program
PROC: 0DJD8ZZ Inspection of Lower Intestinal Tract, Via Natural or Artificial Opening Endoscopic (ICD-10-PCS; CPT 45378; principal; 2023-03-10 13:30)
DX: Z12.11 Encounter for screening for malignant neoplasm of colon (principal); G80.9 Cerebral palsy, unspecified; R63.0 Anorexia
CPT/HCPCS: 45378; 00123; J2001; J2704

== ENCOUNTER → 2023-06-03 04:31 | Outpatient (CLI) | payer MEDICAID, SELFPAY ==
--- NOTE | 2023-06-03 14:40 | DI.RAD_ITS ---
Exam(s) XR KNEE LT 3V AP,LAT,CAMILA EXAM: XR KNEE LT 3V AP,LAT,CAMILA CLINICAL HISTORY: LT KNEE PAIN, M25.562. TECHNIQUE: 2D digital imaging was performed. Three views. COMPARISON: No exams were available for comparison FINDINGS: BONES: No acute fracture is present. No bony destructive lesion is seen. The bones appear osteopen ic. JOINTS: The knee is normally aligned. No joint effusion is seen. Femoral tibial joint spaces are main tained. The patellofemoral joint is not optimally profiled. SOFT TISSUE: Normal. IMPRESSION: No acute abnormality. DATA REPOSITORY: RADIATION DOSE DELIVERED:
== END ==
PROVIDERS: Visit Provider Nurse Practitioner Family
DX: M25.562 Pain in left knee (principal); M85.88 Other specified disorders of bone density and structure, other site
CPT/HCPCS: 73562

== ENCOUNTER 2023-06-03 05:34 | Outpatient (CLI) | payer MEDICAID, SELFPAY ==
[2023-06-03 15:02] LABS: Abs Immature Grans 0.01 10^3/uL (0.0-0.06); Absolute Basophil Count 0.04 10^3/uL (0.0-0.2); Absolute Eosinophil Count 0.11 10^3/uL (0.0-0.7); Absolute Lymphocyte Count 1.06 10^3/uL (1.2-3.4); Absolute Monocyte Count 0.26 10^3/uL (0.1-0.8); Absolute Neutrophil Count 3.43 10^3/uL (1.2-6.7); Basophils % 0.8; Eosinophils % 2.2; HCT 29.6 % (36.0-46.0); Immature Grans % 0.2; Lymphocytes % 21.6; MCH 24.7 pg (27.0-33.0); MCHC 30.4 % (32.0-36.0); MCV 81 fL (80-95); MPV 9.2 fL (8.0-11.0); Monocytes % 5.3; Neutrophils % 69.9; Platelet Count 309 10^3/uL (130-400); RBC 3.65 10^6/uL (3.93-5.22); RDW 18.4 % (11.7-14.6); RDW-SD 54.4 fL; WBC 4.91 10^3/uL (4.4-10.8)
[2023-06-03 16:07] LABS: Iron 16 ug/dL (50-170); Total Iron Binding Capacity 527 ug/dL (250-450); Transferrin Sat 3 % (15-50)
[2023-06-03 16:16] LABS: ALT 15 U/L (14-59); AST 15 U/L (15-37); Albumin 3.9 g/dL (3.4-5.0); Alkaline Phosphatase 68 U/L (46-116); Anion Gap 11.8 mmol/L (3-11); BUN 8 mg/dL (7-18); Bilirubin, Total 0.6 mg/dL (0.2-1.0); CO2 25.2 mmol/L (21.0-32.0); CREATININE 0.7 mg/dL (0.55-1.02); Calcium 8.6 mg/dL (8.5-10.1); Chloride 104 mmol/L (98-107); Estimated GFR 106.62 (mL/min/1.73m2); Glucose 72 mg/dL (74-106); Potassium 3.4 mmol/L (3.5-5.1); Sodium 141 mmol/L (136-145); TSH (W/Ref FT4) 2.68 uIU/mL (0.36-3.74); Total Protein 7.8 g/dL (6.4-8.2)
[2023-06-03 18:10] LABS: Vitamin D 25 Total 14.4 ng/mL (30-100)
== END 2023-06-03 05:35 | disposition home or self-care (01) ==
LOC: LBO 05:34
PROVIDERS: Visit Provider Nurse Practitioner Family
DX: D64.9 Anemia, unspecified (principal); F41.9 Anxiety disorder, unspecified; E55.9 Vitamin D deficiency, unspecified; L65.9 Nonscarring hair loss, unspecified
CPT/HCPCS: 36415; 80053; 82306; 83540; 83550; 84443; 85025

== ENCOUNTER 2024-03-21 15:16 | Outpatient (REF) | payer MEDICAID, SELFPAY ==
[2024-03-21 18:27] LABS: Abs Immature Grans 0.01 10^3/uL (0.0-0.06); Absolute Basophil Count 0.05 10^3/uL (0.0-0.2); Absolute Eosinophil Count 0.07 10^3/uL (0.0-0.7); Absolute Lymphocyte Count 1.06 10^3/uL (1.2-3.4); Eosinophils % 1.4 %; HCT 31.1 % (36.0-46.0); HGB 9.6 g/dL (11.2-15.7); Immature Grans % 0.2 %; Lymphocytes % 21.7 %; MCH 24.7 pg (27.0-33.0); MCHC 30.9 % (32.0-36.0); MCV 80 fL (80-95); Monocytes % 10.2 %; Neutrophils % 65.5 %; Platelet Count 238 10^3/uL (130-400); RBC 3.88 10^6/uL (3.93-5.22); RDW 15.8 % (11.7-14.6); RDW-SD 45.6 fL; WBC 4.89 10^3/uL (4.4-10.8)
[2024-03-21 19:01] LABS: ALT 11 U/L (14-59); AST 12 U/L (15-37); Albumin 3.8 g/dL (3.4-5.0); Alkaline Phosphatase 60 U/L (46-116); Anion Gap 9.3 mmol/L (3-11); BUN 12 mg/dL (7-18); Bilirubin, Total 0.89 mg/dL (0.2-1.0); CO2 25.7 mmol/L (21.0-32.0); CREATININE 0.7 mg/dL (0.55-1.02); Chloride 104 mmol/L (98-107); Estimated GFR 105.95 (mL/min/1.73m2); Ferritin 5 ng/mL (8-252); Glucose 88 mg/dL (74-106); Potassium 4.3 mmol/L (3.5-5.1); Sodium 139 mmol/L (136-145); TSH (W/Ref FT4) 2.27 uIU/mL (0.36-3.74); Total Protein 7.5 g/dL (6.4-8.2)
[2024-03-21 21:02] LABS: Iron 31 ug/dL (50-170); Total Iron Binding Capacity 506 ug/dL (250-450); Transferrin Sat 6 % (15-50)
== END 2024-03-21 15:17 | disposition home or self-care (01) ==
LOC: NCHCN 15:16
PROVIDERS: PCP Nurse Practitioner Family; Visit Provider Nurse Practitioner Family
DX: R53.83 Other fatigue (principal); M25.531 Pain in right wrist; E61.1 Iron deficiency
CPT/HCPCS: 80053; 82728; 83540; 83550; 84443; 85025

== ENCOUNTER 2024-04-07 17:27 | Outpatient (REF) | payer MEDICAID, SELFPAY ==
--- NOTE | 2024-04-07 15:00 | PAPFT_PTH ---
PATIENT: Daphne Machado LOC: [facility] U#:[id number] AGE/SX: 48/F ROOM: RE04/07/[address]: Valentina Gregory DO : 1975 BED: DIS: 04/07/2024 SPEC #: [id number] RECD: 04/07/24 17:31 STATUS: DANUTA REQ #: [id number] NANCY: 04/07/24 15:[address]: Valentina Gregory DEPT: [facility] Cytology RECD BY: Jessie Greenfield ENTERED: 04/07/24 17:31 SP TYPE: PAPFT OTHR DR: Uyen Hwang Tissues: 1 - CX/ENDOCX FOR PAP SMEARS Procedures: PAP THIN PREP/UVM Screening HPV DNA PROBE Comments: [id number] (HPV 16 & 18/45)
== END 2024-04-07 17:28 | disposition home or self-care (01) ==
LOC: LBN 17:27
PROVIDERS: PCP Nurse Practitioner Family; Visit Provider Obstetrics & Gynecology
DX: Z01.419 Encounter for gynecological examination (general) (routine) without abnormal findings (principal); G80.9 Cerebral palsy, unspecified
CPT/HCPCS: 88142; 87624

== ENCOUNTER 2024-04-12 02:34 | Outpatient (CLI) | payer MEDICAID, SELFPAY ==
--- NOTE | 2024-04-12 12:40 | DI.MAMMO_ITS ---
Exam(s) MAMMO SCREENING EXAM: MAMMO SCREENING CLINICAL HISTORY: Screening, Z12.31 TECHNIQUE: Bilateral full field digital CC and MLO mammographic images were obtained with 3D tomosyn thesis and utilizing computer aided detection (CAD). COMPARISON: Available for comparison. FINDINGS: Masses/Architectural Distortion: None seen. Microcalcifications: No suspicious pleomorphic-type are seen. Skin Thickening/Nipple Retraction: None. IMPRESSION: 1. No significant interval change with no specific features of malignancy noted. 2. Unless there is more urgent need, screening mammography is recommended, as per [place] [employer] guidelines. BI-RADS Category 1 - Negative Breast Density - Category C - Heterogeneously dense Breast density category C or D implies that the patient has dense breast tissue. Dense breast tissue is very common and is not abnormal but dense breast tissue can make it harder to find cancer on a ma mmogram. Also, dense breast tissue may increase their breast cancer risk. This information about the result of the mammogram report was provided to the patient to raise their awareness. Use this report when you speak with the patient about their risks for breast cancer, which includes their family hist ory. At that time, you may recommend for more screening tests (Ultrasound or MRI) as they might be us eful based on their risk. A negative radiographic report should not delay biopsy if a dominant or clinically suspicious mass is present. Up to ten percent of cancers are not identified on mammography. A negative report may reinforce clinical impression. Adenosis and dense breasts may obscure an underlying neoplasm. False positive reports average 6 to 10%. Patient will receive a letter notifying them of these results.
== END 2024-04-12 02:54 ==
PROVIDERS: PCP Nurse Practitioner Family; Visit Provider Nurse Practitioner Family
DX: Z12.31 Encounter for screening mammogram for malignant neoplasm of breast (principal); R92.333 Mammographic heterogeneous density, bilateral breasts
CPT/HCPCS: 77063; 77067

== ENCOUNTER 2024-05-18 09:22 | Outpatient (REF) | payer MEDICAID, SELFPAY ==
[2024-05-18 09:27] LABS: Abs Immature Grans 0.01 10^3/uL (0.0-0.06); Absolute Basophil Count 0.06 10^3/uL (0.0-0.2); Absolute Eosinophil Count 0.11 10^3/uL (0.0-0.7); Absolute Lymphocyte Count 1.46 10^3/uL (1.2-3.4); Absolute Monocyte Count 0.47 10^3/uL (0.1-0.8); Absolute Neutrophil Count 3.53 10^3/uL (1.2-6.7); Basophils % 1.1 %; HCT 31.5 % (36.0-46.0); HGB 9.5 g/dL (11.2-15.7); Immature Grans % 0.2 %; Lymphocytes % 25.9 %; MCH 23.4 pg (27.0-33.0); MCHC 30.2 % (32.0-36.0); MCV 78 fL (80-95); MPV 9.5 fL (8.0-11.0); Monocytes % 8.3 %; Neutrophils % 62.5 %; Platelet Count 285 10^3/uL (130-400); RBC 4.06 10^6/uL (3.93-5.22); RDW 15.7 % (11.7-14.6); RDW-SD 43.7 fL; WBC 5.64 10^3/uL (4.4-10.8)
[2024-05-18 09:54] LABS: Iron 26 ug/dL (50-170); Total Iron Binding Capacity 518 ug/dL (250-450); Transferrin Sat 5 % (15-50)
[2024-05-18 09:56] LABS: ALT 13 U/L (14-59); AST 13 U/L (15-37); Albumin 3.9 g/dL (3.4-5.0); Alkaline Phosphatase 74 U/L (46-116); Anion Gap 10.4 mmol/L (3-11); BUN 6 mg/dL (7-18); Bilirubin, Total 0.7 mg/dL (0.2-1.0); CO2 26.6 mmol/L (21.0-32.0); CREATININE 0.7 mg/dL (0.55-1.02); Calcium 8.9 mg/dL (8.5-10.1); Chloride 105 mmol/L (98-107); Estimated GFR 105.95 (mL/min/1.73m2); Ferritin 7 ng/mL (8-252); Glucose 87 mg/dL (74-106); Potassium 3.5 mmol/L (3.5-5.1); Sodium 142 mmol/L (136-145); Total Protein 8.2 g/dL (6.4-8.2)
== END 2024-05-18 09:23 | disposition home or self-care (01) ==
LOC: LBN 09:22
PROVIDERS: PCP Nurse Practitioner Family; Visit Provider Internal Medicine Hematology & Oncology
DX: D50.9 Iron deficiency anemia, unspecified (principal)
CPT/HCPCS: 80053; 82728; 83540; 83550; 85025

== ENCOUNTER 2024-06-07 16:52 | Emergency (ER) | payer MEDICAID, SELFPAY ==
[2024-06-07] VITALS (43 sets, daily range): BP systolic 87–119; BP diastolic 40–74; PULSE 55–93; RESP 12–22; TEMP 36.5–36.9; O2SAT 96–100
--- NOTE | 2024-06-07 16:30 | RT.EKG_ITS ---
APPROVED REPORT Exam: Resting ECG Reason for Exam: syncope Patient Location: E HR:56 bpm ECG Measurements Heart Rate 56 AXIS VT 166 P 77 QRSd 74 QRS 70 QT 459 T 55 QTc 443 Conclusion Sinus bradycardia...rate< 60 Low voltage, precordial leads...precordial leads <1.0mV Consider anteroseptal infarct...Q >30mS, dimin R, V1-V2
--- NOTE | 2024-06-07 17:00 | DI.CT_ITS ---
Exam(s) CT ABDOMEN PELVIS W EXAM: CT ABDOMEN PELVIS W CLINICAL HISTORY: mid and lower abdomen, hypotension. TECHNIQUE: Imaging Protocol: Axial computed tomography images with coronal and sagittal reformatted images were created and reviewed CONTRAST MATERIAL: Intravenous: Omnipaque-350 75cc Oral: None COMPARISON: CT ABD PELVIS WITH CONTRAST from 12/02/2016 FINDINGS: VISUALIZED LUNG BASES: No nodules nor pleural effusions evident. ABDOMEN: GI: There is some circumferential thickening of the duodenal wall. There is no evidence of small-bow el obstruction. There is abundant fecal material noted throughout the colon. There is a small amoun t of ascites in the right pericolic gutter just below the inferior tip of the right hepatic lobe (ser ies 9/image 33) as well as some free fluid in both sides of the dependent aspect of the pelvis. LIVER: 2 small benign cysts in the liver are unchanged from 2017. There are no new significant focal hepatic findings. No dilated intrahepatic ducts. GALLBLADDER/BILIARY: Gallbladder is again noted be surgically absent. CBD diameter measures 9 mm, mo st probably commensurate with post cholecystectomy status. There is no dilatation of intrahepatic du cts. PANCREAS: No evidence of pancreatic mass nor dilatation of the pancreatic duct. SPLEEN: Spleen is not enlarged. No obvious intrasplenic lesions. Splenic and portal veins are paten t. ADRENALS: There are no significant adrenal masses. KIDNEYS:No cysts evident. No solid renal masses. There is a 5 millimeter calculus in the midpole of the right kidney, unchanged from 2017 and nonobstructive. No other focal renal findings... ABDOMINAL AORTA: Abdominal aorta is not enlarged. LYMPH NODES:There is no retroperitoneal nor paraaortic adenopathy. ABDOMINAL WALL: No evidence of significant anterior abdominal wall nor inguinal hernia. GI: There is no evidence of bowel obstruction, free air, nor abscess. PELVIS: GI: The appendix is not able to be identified as a separate structure. There is no evidence of obvio us acute appendicitis.No evidence of sigmoid diverticulitis. LYMPH NODES: There is no intrapelvic nor inguinal adenopathy. REPRODUCTIVE: The endometrium appears slightly thickened. There are no uterine fibroids evident. Th ere is a cyst in the left ovary which measures 3 x 2.6 cm. There is small-moderate amount of free fl uid in the dependent aspect of the pelvis both in the cul-de-sac and both adnexal regions. URINARY BLADDER: Urinary bladder is moderately distended. There is not contain radiopaque calculi no r obvious masses. OSSEOUS: No fractures and no significant osseous lesions. IMPRESSION: 1. There is some thickening of the endometrium evident. There is also a 3 x 2.6 cm cyst in the left ovary. 2. There is a small-moderate amount of free fluid in the dependent aspect of the pelvis as well as a tiny amount of fluid in the upper right paracolic gutter subjacent to the tip of the right hepatic lo be. This may or may not be related to the left ovarian cyst described above. 3. Abundant fecal material is noted throughout the colon. There is some thickening of the wall of th e distal stomach/proximal duodenum, possibly significant. 4. Gallbladder surgically absent. Mildly dilated CBD is most probably related to post cholecystectom y status. There are no dilated intrahepatic ducts. Appendix cannot be identified as a separate structure but there are no obvious findings in the acute appendicitis. Correlation with any previous history of appendectomy recommended. There is a nonobstructive 5 millimeter calculus at the midpole level of the right kidney which is unc hanged from 2017. Report called by myself to ER physician 06/07/2024 at 6:25 p.m. RADIATION DOSE DELIVERED: 229.52mGy.cm Total DLP DATA REPOSITORY: All CT scans at this facility are submitted to the National Radiology Data Registry (NRDR) Dose Index Registry (DIR) with the [employer] ([employer]). RADIATION OPTIMIZATION: All CT scans at this facility use at least one of these dose optimization te chniques: automated exposure control; mA and/or kV adjustment per patient size (includes targeted exa ms where dose is matched to clinical indication); or iterative reconstruction.
--- NOTE | 2024-06-07 17:09 | DI.CT_ITS ---
Exam(s) CT HEAD CERVICAL SPINE WO EXAM: CT HEAD CERVICAL SPINE WO CLINICAL HISTORY: fall, hit head, pain. TECHNIQUE: Imaging Protocol: Axial computed tomography images with coronal and sagittal reformatted images were created and reviewed COMPARISON: CT HEAD WITHOUT CONTRAST from 11/05/2016 FINDINGS: BRAIN: There are no skull fractures nor fluid in the visualized paranasal sinuses. There is no evidence of intracranial hemorrhage, mass effect, or shift of midline structures. There are no extra-axial fluid collections. The ventricles are not enlarged or shifted and there is no blo od within the ventricular system nor within the basal cisterns. CERVICAL SPINE: There is no evidence of fracture nor listhesis. No significant prevertebral soft tissue swelling. There is chronic disc space narrowing at C5-6 level noted. Other disc spaces exhibit normal height. Facet joints appear unremarkable. No significant arthropathy nor facet malalignment. No cervical ribs. No significant osseous lesions evident. IMPRESSION: No acute intracranial findings on this noninfused CT scan of the brain. No evidence of cervical spine fracture, malalignment, nor acute compromise of the cervical spinal can al. Report called by myself to ER physician 06/07/2024 at 6:06pm RADIATION DOSE DELIVERED: 1,103.87mGy.cm Total DLP DATA REPOSITORY: All CT scans at this facility are submitted to the National Radiology Data Registry (NRDR) Dose Index Registry (DIR) with the [employer] (ACR). RADIATION OPTIMIZATION: All CT scans at this facility use at least one of these dose optimization te chniques: automated exposure control; mA and/or kV adjustment per patient size (includes targeted exa ms where dose is matched to clinical indication); or iterative reconstruction.
[2024-06-07] MEDS: Normal Saline 1,000 ML 1000 ML IV (17:10)
--- NOTE | 2024-06-07 17:11 | W.ED.GENAD ---
Discharge Plan Disposition Patient Disposition: Home Condition: Stable Discharge Details Clinical Impression: Acute hypokalemia, UTI (urinary tract infection), Light-headed, Abdominal pain, Fall, Blunt head trauma Primary Care Provider: Uyen Hwang ED Provider: Gerry Lopez Home Meds and New Rx's Prescriptions: New cephalexin 500 mg tablet 500 mg PO QID Qty: 28 0RF Continued lamotrigine 25 mg tablet 25 mg PO DAILY ferrous gluconate 324 mg (37.5 mg iron) tablet 324 mg PO DAILY Discontinued bisacodyl [Dulcolax (bisacodyl)] 5 mg tablet,delayed release (DR/EC) 5 mg PO ONCE Qty: 4 0RF Rx Instructions: Colonoscopy Bowel Prep- Per Instructions latanoprost 0.005 % drops 1 drp ophthalmic (eye) DAILY cholecalciferol (vitamin D3) 125 mcg (5,000 unit) tablet 125 mcg PO DAILY Discharge Instructions Instructions: Hypokalemia Additional Instructions: You are found to have a low potassium level and a UTI. Make sure to completing fluids and stay hydrated. Try to increase your dietary intake of potassium. 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 If you feel more ill or have new symptoms such as severe chest pain or difficulty breathing return to the emergency department for reevaluation HPI General Mode of arrival: EMS. Date/Time Provider Initiated Documentation: 06/07/24 17:04. Limitations to Documentation: no limitations. Information obtained by: patient. History of Present Illness 48 year old F presents to the emergency department with the chief complaint of lightheaded, mid abdomen pain, Quality is described as stabbing, and is localized to the abdomen. Patient reports no radiation. Patient started experiencing this hour(s) (1) and it has been constant. No relieving factors improve symptom(s), No exacerbating factors reported . Patient notes denies chest pain, fever/chills and shortness of breath. Related Data Home Medications ?Medication ?Instructions ?Recorded ?Confirmed ferrous gluconate 324 mg (37.5 mg 324 mg PO DAILY 01/22/23 06/07/24 iron) tablet lamotrigine 25 mg tablet 25 mg PO DAILY 04/07/24 06/07/24 cephalexin 500 mg tablet 500 mg PO QID #28 tabs 06/07/24 Previous Rx's ?Medication ?Instructions ?Recorded cephalexin 500 mg tablet 500 mg PO QID #28 tabs 06/07/24 Allergies Allergy/AdvReac Type Severity Reaction Status Date / Time No Known Allergies Allergy Unverified 04/07/24 14:37 General Stated Complaint: Dizzy/Sync BERHANE: 2 Review of Systems All systems reviewed & are unremarkable except as noted in HPI and below Constitutional Constitutional: Denies chills, Denies fever(s) and Denies weakness ENT Ears, Nose, Mouth, and Throat: Denies change in voice Cardiovascular Cardiovascular: Denies chest pain, Denies dyspnea and Reports other (lightheaded) Respiratory Respiratory: Denies cough and Denies dyspnea Gastrointestinal Gastrointestinal: Reports abdominal pain, Denies nausea and Denies vomiting Neurologic Neurologic: Denies weakness Exam Const General: no acute distress Orientation: alert HENMT Head: normal to inspection Ears: external ears normal General nose exam: external nose normal Mouth: moist mucous membranes Eyes General: appearance normal, both eyes and all related structures Neck Neck: normal visual inspection Resp Effort & Inspection: normal respiratory effort and able to speak in complete sentences Auscultation: clear to auscultation bilaterally Cardio Jugular venous pressure: no JVD Rate: bradycardic GI Palpation: soft and tender Skin General skin exam: no rashes or lesions noted Neuro General: patient alert and patient oriented x3 Extrem General: normal to inspection Psych Mental Status: mental status grossly normal Course Vital Signs Vital signs: Vital Signs Temperature 36.5 C 06/07/24 16:54 Pulse 58 L 06/07/24 16:54 Respiratory Rate 22 06/07/24 16:54 Blood Pressure 89/48 L 06/07/24 16:54 Pulse Oximetry 100 06/07/24 16:54 Temperature 36.5 C 06/07/24 16:54 Temperature Source Axillary 06/07/24 16:54 Pulse 58 L 06/07/24 16:54 Respiratory Rate 22 06/07/24 16:54 Blood Pressure 89/48 L 06/07/24 16:54 Blood Pressure Position Supine 06/07/24 16:54 Pulse Oximetry 100 06/07/24 16:54 Oxygen Delivery Method Room Air 06/07/24 16:54 Oxygen Flow Rate 0 06/07/24 16:54 Medical Decision Making 48-year-old female with a history of iron deficiency anemia, cerebral palsy, who comes in with EMS after she began feeling lightheaded and having abdominal pain. She says she was at the cancer center where she gets treated for her iron deficiency anemia and was getting her third ever infusion of iron. She says last week when she had the infusion she had some lightheadedness but not resolved and was not severe. Today shortly after finishing the infusion she started feeling lightheaded and fell over. They apparently checked her BP there and it was in the 40s systolic so EMS was called and they administered IM epinephrine and brought her here. She is currently oriented x 4 and is mentating well with a blood pressure of 90 systolic. She has no tachycardia, denies any chest pain or difficulty breathing. She has no rashes. She does have some mid and lower left abdominal pain and is tender in these areas without guarding. Given her symptoms started shortly after the infusion finished I suspect she could have some sensitivity to the infusion, we will keep on the monitor to evaluate if she needs recurrent epinephrine injections. Will check a CBC, CMP, lactate and procalcitonin given her initial hypotension and also troponins. Will also obtain a CT abdomen pelvis given she fell and hit her head she states I will obtain CT head and C-spine. She has no tearing back pain equal peripheral pulses so doubt dissection she has no evidence of DVT on exam so I doubt PE and she is not tachycardic or hypoxic Labs show lactate over 3, white count 12, CT and C-spine negative, CT abdomen pelvis shows no emergent findings, does have a ovarian cyst with small amount of free fluid. She is feeling better, potassium is also noted to be 2.6. Will replete this orally and with IV. UA still pending. I am can add a chest x-ray given her lactate and leukocytosis and we will recheck her lactate after fluids are done. Lactate improved to 1.5 and hyperkalemia is now resolved. 3 negative troponins. I did give her a dose of ceftriaxone for likely UTI. She feels significantly better and is tolerating p.o. and requesting discharge, given improvement in her lab work and after IV fluids her blood pressure is now normal I feel this is reasonable. She will discuss with her provider if they want to continue the iron infusions. Return precautions given Differential Diagnosis Differential Diagnosis: Anaphylaxis, diverticulitis, dehydration Lab Data Lab results reviewed: Yes I reviewed the patient's lab results. ECG Data Attestation: I personally reviewed and interpreted this ECG (s) as follows: Prior ECG tracings: not available for review Interpretation: sinus navid, rate of 56 no stemi Quality:SDOH Health Related Social Needs: No Data to Display PFSH All Active Problems (Updated 06/07/24 @ 21:06 by Gerry Lopez MD) Blunt head trauma (Acute) Fall (Acute) Abdominal pain (Acute) Light-headed (Acute) UTI (urinary tract infection) (Acute) Acute hypokalemia (Acute) Well woman exam with routine gynecological exam (Acute) Anorexia (Acute) Recurrent major depression-severe (Acute) Anxiety (Chronic) Adjustment disorder with mixed emotional features (Acute) Hair loss (Acute) Low hemoglobin (Acute) Vitamin D deficiency (Acute) Wrist pain, right (Acute) Onychomycosis of toenail (Acute) Constipation (Acute) Muscle weakness (Acute) Fatigue (Acute) Perimenopausal (Acute) Premenstrual symptom (Acute) Weight loss (Acute) Magnesium deficiency (Acute) Hyperlipidemia (Acute) Dysuria (Acute) Iron deficiency anemia (Acute) Cerebral palsy (Acute) Medical History Hx of renal calculi Hx of suicide attempt H/O fall Surgical History Hx of release of tendon Left hamstring 12/28/2006 History of colonoscopy EGD also 10/23/2008 History of carpal tunnel release right 12/28/2006 Fx distal ulna-open right 12/28/2006 Hx of cholecystectomy 07/28/2005 History of 12/28/2006 History of appendectomy 12/28/2006 Social History Smoking/Tobacco Use Status: Never Second Hand Exposure: No Smoking risk assessment performed?: Yes Alcohol Intake: former Drug use: Never Substance use type: does not use Household members: children Housing: apartment Pets and animals: Yes Pets and animals: cat(s) and dog(s) Current gender identity: female What is your relationship status?: Panel score (0-1 are the most socially isolated patients): 0 What type of physical activity do you participate in: regular exercise Frequency: daily Do you feel safe at home: Yes Do you feel safe in your relationship?: Yes Female Reproductive History Menstrual Age of Menarche: 12 Duration of menses: 3-5 days History History 2 Para 2 Hx # Term Pregnancies Multiple births Hx # Pregnancies Ectopic pregnancies AB induced Hx Number of Living Children AB spontaneous
[2024-06-07 17:38] LABS: BE (Venous) -5 mmol/L (-2-3); HCO3 (Venous) 22 mmol/L (23-28); O2 Sat (Venous) 72 %; TCO2 (Venous) 21 mmol/L (24-29); pCO2 (Venous) 46 mmHg (41-51); pH (Venous) 7.29 (7.31-7.41); pO2 (Venous) 44 mmHg
[2024-06-07 17:39] LABS: Abs Immature Grans 0.07 10^3/uL (0.0-0.06); Absolute Basophil Count 0.12 10^3/uL (0.0-0.2); Absolute Eosinophil Count 0.12 10^3/uL (0.0-0.7); Absolute Lymphocyte Count 4.85 10^3/uL (1.2-3.4); Absolute Monocyte Count 0.86 10^3/uL (0.1-0.8); Basophils % 0.9 %; Eosinophils % 0.9 %; HCT 40.5 % (36.0-46.0); HGB 12.2 g/dL (11.2-15.7); Immature Grans % 0.5 %; Lymphocytes % 37.4 %; MCH 25.7 pg (27.0-33.0); MCHC 30.1 % (32.0-36.0); MCV 85 fL (80-95); MPV 10.1 fL (8.0-11.0); Monocytes % 6.6 %; Neutrophils % 53.7 %; Platelet Count 430 10^3/uL (130-400); RBC 4.74 10^6/uL (3.93-5.22); RDW 21.9 % (11.7-14.6); RDW-SD 66.1 fL; WBC 12.96 10^3/uL (4.4-10.8)
[2024-06-07 17:42] LABS: Lactate 3.6 mmol/L (<or=2.0)
[2024-06-07] MEDS: Normal Saline - Diluent 50 ML VIAL IJ (17:45)
[2024-06-07] MEDS: Omnipaque 350 MG/ML 100 ML BTL 75 ML IJ (17:49)
[2024-06-07 17:53] LABS: INR 1.1 (0.9-1.1); PTT Activated 29.8 sec (20.6-30.2); Prothrombin Time 10.8 sec (9.1-11.1)
[2024-06-07 18:00] LABS: HCG Qual (Serum) Negative
--- NOTE | 2024-06-07 18:00 | DI.RAD_ITS ---
Exam(s) XR PORTABLE CHEST AP EXAM: XR PORTABLE CHEST AP CLINICAL HISTORY: ?pneumonia. TECHNIQUE: 2D digital imaging was performed. COMPARISON: No exams were available for comparison FINDINGS: Single AP portable view. Heart size is upper normal. The mediastinum is not widened. Lungs are clear. No infiltrates nor obvious pleural effusions. Density in the right lung appears to be overlapping shadows of rib and inferior aspect of the right s capula. IMPRESSION: No acute pulmonary findings on this single AP portable view of the chest. DATA REPOSITORY: RADIATION DOSE DELIVERED:
[2024-06-07 18:01] LABS: Absolute Neutrophil Count 6.96 10^3/uL (1.2-6.7); Anisocytosis 2+; Diff Comment RBC Morph Reviewed; Poikilocytes 1+
[2024-06-07 18:11] LABS: ALT 12 U/L (14-59); AST 11 U/L (15-37); Albumin 3.6 g/dL (3.4-5.0); Alkaline Phosphatase 64 U/L (46-116); Anion Gap 10.4 mmol/L (3-11); BUN 7 mg/dL (7-18); CO2 23.6 mmol/L (21.0-32.0); Calcium 8.4 mg/dL (8.5-10.1); Chloride 106 mmol/L (98-107); Estimated GFR 69.06 (mL/min/1.73m2); Glucose 207 mg/dL (74-106); Magnesium 1.8 mg/dL (1.8-2.4); NT-proBNP 42 pg/mL (<300); Sodium 140 mmol/L (136-145); TSH (W/Ref FT4) 5.14 uIU/mL (0.36-3.74); Total Protein 6.8 g/dL (6.4-8.2); Troponin I 4 ng/L (<or=51)
[2024-06-07 18:15] LABS: Potassium 2.6 mmol/L (3.5-5.1)
[2024-06-07 18:17] LABS: Procalcitonin < 0.10 ng/mL
[2024-06-07 18:31] LABS: FREE T4 1.45 ng/dL (0.76-1.46)
[2024-06-07] MEDS: Potassium Chloride 20 MEQ TABCR 80 MEQ PO (18:43)
[2024-06-07] MEDS: POTASSIUM CHLORIDE 10 MEQ/100 ML BAG 100 MEQ IV_INF (18:44)
[2024-06-07 19:07] LABS: Troponin I 4 ng/L (<or=51)
[2024-06-07 19:26] LABS: Bilirubin Negative (Negative); Blood Small (Negative); Clarity Clear (Clear); Glucose Negative (Negative); Ketones Negative (Negative); Leukocyte Esterase Small (Negative); Nitrite Negative (Negative); Specific Gravity 1.015 (1.005-1.025); Urobilinogen 0.2 mg/dL (Up to 0.2); pH 6.5 (5-8)
[2024-06-07 19:37] LABS: Bacteria Few HPF (Negative); C & S Indicated? No/Sq. Contamination; Casts Negative LPF (Negative); Crystals Negative HPF (Negative); Epithelial Cells Moderate HPF (Negative); Mucus Trace (Negative); Other Cells Rare Yeast (Negative); RBC 0-2 HPF (0-2); WBC 20-50 HPF (0-5)
[2024-06-07 19:45] LABS: COVID-19 PCR Negative (Negative); Influenza A PCR Negative (Negative); Influenza B PCR Negative (Negative); RSV PCR Negative (Negative); Source Nasopharynx
[2024-06-07] MEDS: cefTRIAXone 2 GM/50 ML BAG IVPB (20:22)
[2024-06-07 20:25] LABS: Troponin I 5 ng/L (<or=51)
[2024-06-07 20:47] LABS: Lactate 1.5 mmol/L (<or=2.0)
[2024-06-07 20:59] LABS: Anion Gap 7.6 mmol/L (3-11); BUN 6 mg/dL (7-18); CO2 23.4 mmol/L (21.0-32.0); CREATININE 0.8 mg/dL (0.55-1.02); Calcium 7.8 mg/dL (8.5-10.1); Chloride 107 mmol/L (98-107); Estimated GFR 90.27 (mL/min/1.73m2); Glucose 106 mg/dL (74-106); Potassium 4.7 mmol/L (3.5-5.1); Sodium 138 mmol/L (136-145)
== END 2024-06-07 21:38 | disposition home or self-care (01) ==
PROVIDERS: Emergency Provider Emergency Medicine; PCP Nurse Practitioner Family
DX: R42 Dizziness and giddiness (principal); E87.6 Hypokalemia; R00.1 Bradycardia, unspecified; E78.5 Hyperlipidemia, unspecified; G80.9 Cerebral palsy, unspecified
CPT/HCPCS: 80048; 80053; 82805; 82962; 84145; 86850; 86900; 86901; 87637; 93005; 96361; 96365; 96375; 99285; 70450; 71045; 72125; 74177; 81003; 81015; 83605; 83735; 83880; 84439; 84443; 84484; 84703; 85025; 85610; 85730; 93010; J0696; J3480; J3490

== ENCOUNTER 2024-09-28 02:23 | Outpatient (CLI) | payer MEDICAID, SELFPAY ==
[2024-09-28 09:07] LABS: Abs Immature Grans 0.03 10^3/uL (0.0-0.06); HCT 37.8 % (36.0-46.0); HGB 12.3 g/dL (11.2-15.7); Immature Grans % 0.4 %; MCH 30.4 pg (27.0-33.0); MCHC 32.5 % (32.0-36.0); MCV 93 fL (80-95); MPV 9.9 fL (8.0-11.0); Platelet Count 230 10^3/uL (130-400); RBC 4.05 10^6/uL (3.93-5.22); RDW 13.0 % (11.7-14.6); RDW-SD 44.5 fL; WBC 7.04 10^3/uL (4.4-10.8)
[2024-09-28 09:27] LABS: ALT 12 U/L (14-59); AST 12 U/L (15-37); Albumin 4.0 g/dL (3.4-5.0); Alkaline Phosphatase 71 U/L (46-116); Anion Gap 8.8 mmol/L (3-11); BUN 8 mg/dL (7-18); Bilirubin, Total 0.8 mg/dL (0.2-1.0); CO2 26.2 mmol/L (21.0-32.0); Calcium 8.8 mg/dL (8.5-10.1); Chloride 103 mmol/L (98-107); Estimated GFR 89.71 (mL/min/1.73m2); Ferritin 125 ng/mL (8-252); Glucose 85 mg/dL (74-106); Potassium 3.7 mmol/L (3.5-5.1); Sodium 138 mmol/L (136-145); Total Protein 7.7 g/dL (6.4-8.2)
[2024-09-28 09:28] LABS: Iron 47 ug/dL (50-170); Total Iron Binding Capacity 321 ug/dL (250-450); Transferrin Sat 15 % (15-50)
== END 2024-09-28 02:24 | disposition home or self-care (01) ==
LOC: LBO 02:23
PROVIDERS: PCP Nurse Practitioner Family; Visit Provider Internal Medicine Hematology & Oncology
DX: D50.9 Iron deficiency anemia, unspecified (principal)
CPT/HCPCS: 36415; 80053; 82728; 83540; 83550; 85025